=== PATIENT | female | born 1985 | race Caucasian/White ===

== ENCOUNTER 2021-05-26 03:26 | Outpatient (CLI) | payer BC, SELFPAY ==
[2021-05-26 08:20] LABS: Abs Immature Grans 0.01 10^3/uL (0.0-0.06); Absolute Basophil Count 0.07 10^3/uL (0.0-0.2); Absolute Eosinophil Count 0.31 10^3/uL (0.0-0.7); Absolute Lymphocyte Count 2.47 10^3/uL (1.2-3.4); Absolute Monocyte Count 0.51 10^3/uL (0.1-0.8); Absolute Neutrophil Count 3.63 10^3/uL (1.2-6.7); Eosinophils % 4.4; HCT 40.3 % (36.0-46.0); HGB 13.1 g/dL (11.2-15.7); Immature Grans % 0.1; Lymphocytes % 35.3; MCH 29.4 pg (27.0-33.0); MCHC 32.5 % (32.0-36.0); MCV 90.4 fL (80-95); MPV 10.1 fL (8.0-11.0); Monocytes % 7.3; Neutrophils % 51.9; Nucleated RBC 0 %; Platelet Count 265 10^3/uL (130-400); RBC 4.46 10^6/uL (3.93-5.22); RDW 12.9 % (11.7-14.6)
[2021-05-26 08:58] LABS: Iron 63 ug/dL (50-170); Total Iron Binding Capacity 378 ug/dL (250-450)
[2021-05-26 09:22] LABS: ALT 37 U/L (14-59); AST 19 U/L (15-37); Albumin 4.2 g/dL (3.4-5.0); Alkaline Phosphatase 68 U/L (46-116); Anion Gap 8.6 mmol/L (3-11); BUN 18 mg/dL (7-18); Bilirubin, Total 0.5 mg/dL (0.2-1.0); CO2 26.4 mmol/L (21.0-32.0); CREATININE 0.9 mg/dL (0.55-1.02); Calculated LDL 132 mg/dL (<100); Chloride 102 mmol/L (98-107); Cholesterol 238 mg/dL (<200); Folate 10.8 ng/mL (8.6-20.0); Glucose 92 mg/dL (74-106); HDL Cholesterol 96 mg/dL (40-60); Potassium 4.1 mmol/L (3.5-5.1); Sodium 137 mmol/L (136-145); Total Protein 7.8 g/dL (6.4-8.2); Triglyceride 53 mg/dL (<150); Vitamin B12 449 pg/mL (193-986)
[2021-05-26 09:30] LABS: Amylase 104 U/L (25-115); Lipase 423 U/L (73-393)
[2021-05-26 13:28] LABS: Ferritin 27 ng/mL (8-252)
[2021-05-29 11:43] LABS: EBNA IgG Positive (Negative); EBV Interpretation (See Note); VCA IgG Positive (Negative); VCA IgM Negative (Negative)
[2021-05-29 12:15] LABS: IgA 233 mg/dL (85-499); Interpretation (See Note); Tissue Transglutaminase IgA <1.2 U/mL (<4.0)
[2021-05-29 14:56] LABS: M. pneumoniae Ab, IgG Negative (Negative); M. pneumoniae Ab, IgM Negative (Negative)
[2021-05-30 06:17] LABS: 25-Hydroxy D Total 33 ng/mL; 25-Hydroxy D2 <4.0 ng/mL; 25-Hydroxy D3 33 ng/mL
[2021-05-31 15:17] LABS: Candida albicans IgG 2.1 mcg/mL (<52.0)
[2021-06-07 11:39] LABS: Lipoprotein (a) 20 nmol/L (<75)
[2021-06-07 13:52] LABS: Misc Referral (MAYO) See Comments
== END 2021-05-26 03:27 | disposition home or self-care (01) ==
LOC: LBO 03:26
PROVIDERS: PCP Naturopath; Visit Provider Naturopath
DX: N39.0 Urinary tract infection, site not specified (principal); E78.5 Hyperlipidemia, unspecified; R58 Hemorrhage, not elsewhere classified; R53.82 Chronic fatigue, unspecified; R85.0 Abnormal level of enzymes in specimens from digestive organs and abdominal cavity; E55.9 Vitamin D deficiency, unspecified; Z88.9 Allergy status to unspecified drugs, medicaments and biological substances
CPT/HCPCS: 36415; 80053; 80061; 82306; 82784; 83516; 83690; 83695; 86001; 82150; 82607; 82728; 82746; 83540; 83550; 85025; 86003; 86664; 86665; 86738

== ENCOUNTER 2022-03-27 19:42 | Outpatient (REF) | payer BC, SELFPAY ==
[2022-03-29 10:53] LABS: COVID-19 RT-PCR UVMMC Result Negative (Negative)
== END 2022-03-27 19:43 | disposition home or self-care (01) ==
LOC: LBN 19:42
PROVIDERS: PCP Nurse Practitioner; Visit Provider Physician Assistant
DX: J02.9 Acute pharyngitis, unspecified (principal); Z20.822 Contact with and (suspected) exposure to COVID-19
CPT/HCPCS: U0003; 87070

== ENCOUNTER 2022-06-22 17:27 | Outpatient (REF) | payer BC, SELFPAY ==
--- NOTE | 2022-06-22 15:45 | PAPFT_PTH ---
PATIENT: Jackie Galeana LOC: [facility] U#:[id number] AGE/SX: 36/F ROOM: RE06/22/[address]: Ivis Hartmann NP : 1985 BED: DIS: 06/22/2022 SPEC #: [id number] RECD: 06/25/22 13:04 STATUS: NICK REBarbara #: [id number] DAYANA: 06/22/22 15:[address]: Ivis Hartmann DEPT: FORMERLY [facility], [facility] Cytology RECD BY: Suellen Leiva ENTERED: 06/25/22 13:04 SP TYPE: PAPFT OT DR: Damaris Kemp, PhD NUCLEAR FUEL ENRICHMENT TECHNICIAN Tissues: 1 - CX/ENDOCX FOR PAP SMEARS Procedures: PAP THIN PREP/UVM Screening HPV DNA PROBE Comments: [id number]
== END 2022-06-22 17:28 | disposition home or self-care (01) ==
LOC: LBN 17:27
PROVIDERS: PCP Nurse Practitioner; Visit Provider Nurse Practitioner Family
DX: Z12.4 Encounter for screening for malignant neoplasm of cervix (principal); Z11.51 Encounter for screening for human papillomavirus (HPV)
CPT/HCPCS: 88142; 87624

== ENCOUNTER → 2022-07-10 01:33 | Outpatient (CLI) | payer BC, SELFPAY ==
--- NOTE | 2022-07-10 | DI.US_ITS ---
Exam(s) US BREAST LT COMPLETE US BREAST RT COMPLETE MG MAMMO DIAGNOSTIC BI EXAM: MG MAMMO DIAGNOSTIC BI AND BILATERAL COMPLETE BREAST ULTRASOUND CLINICAL HISTORY: Bilateral breast tenderness, lumpy,n64.4. TECHNIQUE: BILATERAL CC AND MLO VIEW mammographic images were obtained with 3D tomosynthesis techn[employer]Rate Systems ue and utilizing computer aided detection (CAD). ALSO PERFORMED SPOT COMPRESSION LEFT VIEW. BILATERAL COMPLETE BREAST ULTRASOUND was performed including all 4 quadrants of both breasts, both re troareolar regions, and both axillary regions. COMPARISON: None. This is a baseline study on this 36-year-old patient apparently has bilateral kurt ast pain but denies lumps. FINDINGS: Fibroglandular tissue is moderately dense in both breast. There are no significant focal mammographic findings in the right breast. In the left breast there is suggestion of a nodular density on the MLO view. We performed additional spot compression view and this reveals a possible nodule measuring 7 x 6 millimeters located 4 cm in from the nipple. There are no malignant-appearing microcalcification groups in either breast and there is no significa nt architectural distortion or skin thickening-traction in either breast. COMPLETE BILATERAL BREAST ULTRASOUND: Left breast: At the 11 o'clock position there is a 6 millimeter Microcyst which may correspond to the finding on the mammogram. Smaller 2 millimeter microcyst is se en at the 9 o'clock position. No solid lesions in all 4 quadrants. Left axilla is negative for marino opathy. Right breast: There is a 3 by 2 millimeter benign microcyst at the 10 o'clock position. No other focal ultrasound findings in all 4 quadrants nor in the retroareolar region. Scanning of the right axilla is negative for adenopathy. IMPRESSION: Bilateral microcysts. The largest is a 6 millimeter microcysts at the 11 o'clock position of the lef t breast which most probably corresponds to the nodule seen on spot compression mammographic view of the left breast. Most importantly, there are no solid lesions seen in either breast. No axillary adenopathy. Appropriate follow-up is repeat breast ultrasound in 3 months if symptoms persist. The patient was informed of the findings and follow-up recommendations prior to leaving the [facility] today. BI-RADS Category 3 - 3 month - Probably Benign Finding: Recommend follow-up mammography in 3 months Breast Density - Category C - Heterogeneously dense Breast density Category C or D implies that the patient has dense breast tissue. Dense breast tissue can make it harder to find cancer on a mammogram. Dense breast tissue is also associated with an incr eased risk of breast cancer. This information about the result of the mammogram report was provided to the patient to raise their awareness. Use this report when you speak with the patient about their risks for breast cancer, which includes their family history. At that time, you may recommend additional screening tests (Ultrasoun d or MRI) as these tests may add significant information. A negative radiographic report should not delay biopsy if a dominant or clinically suspicious mass is present. Up to ten percent of cancers are not identified on mammography. A negative report may reinforce clinical impression. Adenosis and dense breasts may obscure an underlying neoplasm. False positive reports average 6 to 10%. Patient will receive a letter notifying them of these results.
== END ==
PROVIDERS: PCP Nurse Practitioner; Visit Provider Nurse Practitioner Family
DX: N64.4 Mastodynia (principal); R92.0 Mammographic microcalcification found on diagnostic imaging of breast; N60.01 Solitary cyst of right breast; N60.02 Solitary cyst of left breast
CPT/HCPCS: 76642; 77062; 77066; G0279

== ENCOUNTER 2022-07-12 04:02 | Outpatient (CLI) | payer BC, SELFPAY ==
[2022-07-12 10:14] LABS: Lipase 203 U/L (73-393)
== END 2022-07-12 04:03 | disposition home or self-care (01) ==
PROVIDERS: PCP Nurse Practitioner; Visit Provider Nurse Practitioner
DX: R74.8 Abnormal levels of other serum enzymes (principal)
CPT/HCPCS: 36415; 83690

== ENCOUNTER 2023-05-09 15:02 | Outpatient (CLI) | payer BC, SELFPAY ==
[2023-05-09 16:40] LABS: TSH (W/Ref FT4) 1.99 uIU/mL (0.36-3.74)
[2023-05-10 20:17] LABS: Thyroglobulin Antibody <15 U/mL (<=60); Thyroperoxidase Antibody <28 U/mL (<=60)
== END 2023-05-09 15:03 | disposition home or self-care (01) ==
LOC: LBO 15:03
PROVIDERS: PCP Nurse Practitioner Family; Visit Provider Nurse Practitioner Women's Health
DX: R63.5 Abnormal weight gain (principal); R61 Generalized hyperhidrosis; Z83.49 Family history of other endocrine, nutritional and metabolic diseases
CPT/HCPCS: 36415; 86376; 84443

== ENCOUNTER → 2023-05-29 10:22 | Outpatient (CLI) | payer BC, SELFPAY ==
--- NOTE | 2023-05-29 09:30 | DI.US_ITS ---
Exam(s) US SOFT TISSUE EXTREMITY EXAM: US SOFT TISSUE EXTREMITY CLINICAL HISTORY: swelling/cyst left foot please evaluate, lt foot pain, M79.672. TECHNIQUE: Ultrasound was performed using standard protocol. COMPARISON: Foot x-ray same day FINDINGS: Dedicated ultrasound examination of the region of clinical interest on the lateral aspect of the left foot was performed. Plain x-rays were reviewed. There is an abnormal lobulated cystic mass on the lateral aspect of foot which corresponds to the vis ible and palpable finding. This is orientated in the longitudinal plane along the lateral aspect of t he foot, measuring 2.1 cm long by 0.4 cm thick by average width 0.9 cm. Appearance is most probably t hat of a para-articular ganglion cyst. There are no solid nodular internal components evident. No aleksandra dence of calcification within this finding on ultrasound. IMPRESSION: There is a lobulated cystic appearing mass on the lateral aspect of the left foot corresponding to th e palpable finding at this level and having the appearance of a probable para-articular ganglion cyst . Appropriate follow-up recommended. Consider MRI. See signed report. Probable DATA REPOSITORY:
--- NOTE | 2023-05-29 10:33 | DI.RAD_ITS ---
Exam(s) XR FOOT LT COMPLETE EXAM: XR FOOT LT COMPLETE CLINICAL HISTORY: great toe pain, pain at base of 5th metatarsal, M79.672. TECHNIQUE: 2D digital imaging was performed. COMPARISON: No exams were available for comparison FINDINGS: 3 views There is no evidence of fracture or diastasis of the Lisfranc joint. Bone density normal. No osseou s lesions. No degenerative changes. No erosions evident. No soft tissue calcifications. IMPRESSION: No significant osseous findings in the left foot. See separate left foot ultrasound dictation reveals a finding on the lateral aspect the foot which is not visible on these plain radiographs. DATA REPOSITORY: RADIATION DOSE DELIVERED:
== END ==
PROVIDERS: PCP Family Medicine; Visit Provider Physician Assistant
DX: M79.672 Pain in left foot (principal)
CPT/HCPCS: 76881; 73630

== ENCOUNTER 2023-05-31 03:10 | Outpatient (CLI) | payer BC, SELFPAY ==
[2023-05-31 16:48] LABS: Abs Immature Grans 0.01 10^3/uL (0.0-0.06); Absolute Basophil Count 0.07 10^3/uL (0.0-0.2); Absolute Eosinophil Count 0.27 10^3/uL (0.0-0.7); Absolute Lymphocyte Count 2.51 10^3/uL (1.2-3.4); Absolute Monocyte Count 0.57 10^3/uL (0.1-0.8); Absolute Neutrophil Count 4.37 10^3/uL (1.2-6.7); Basophils % 0.9; Eosinophils % 3.5; HCT 39.7 % (36.0-46.0); HGB 13.3 g/dL (11.2-15.7); Immature Grans % 0.1; Lymphocytes % 32.2; MCH 29.6 pg (27.0-33.0); MCHC 33.5 % (32.0-36.0); MCV 88 fL (80-95); MPV 9.9 fL (8.0-11.0); Monocytes % 7.3; Platelet Count 268 10^3/uL (130-400); RBC 4.49 10^6/uL (3.93-5.22); RDW 12.6 % (11.7-14.6); RDW-SD 40.7 fL
[2023-05-31 17:32] LABS: Uric Acid 3.6 mg/dL (2.6-6.0)
== END 2023-05-31 03:11 | disposition home or self-care (01) ==
LOC: LBO 03:10
PROVIDERS: Physician Assistant; PCP Family Medicine; Visit Provider Family Medicine
DX: M79.672 Pain in left foot (principal)
CPT/HCPCS: 36415; 84550; 85025

== ENCOUNTER → 2023-06-17 02:51 | Outpatient (CLI) | payer BC, SELFPAY ==
--- NOTE | 2023-06-17 13:45 | DI.MRI_ITS ---
Exam(s) MR LOWER EXTREMITY LT WO EXAM: MR LOWER EXTREMITY LT WO CLINICAL HISTORY: left foot pain, cyst noted on US,M79.672 TECHNIQUE: Multiplanar multisequence MRI was performed. COMPARISON: US US SOFT TISSUE EXTREMITY from 05/29/2023 CR XR FOOT LT COMPLETE from 05/29/2023 FINDINGS: MARROW:There is no evidence of fracture, bone contusion, nor significant osseous lesions. MUSCLES/TENDONS: There is no evidence of abnormal signal nor mass in the visualized muscles.Achilles tendon unremarkable. There are no tendon tears nor tenosynovitis. EXTRAMUSCULAR SOFT TISSUES: On the lateral aspect of the foot there is a E lobulated multi cystic sep tated T2 bright mass subjacent to the skin marker and corresponding to finding on prior ultrasound. This has the appearance of a para-articular ganglion cyst and measures approximately 2 cm length by 0 .9 cm wide. Closest articulation is the 5th tarsometatarsal joint between the cuboid and base of the 5th metatarsal. This appears separate from the nearby peroneus longus and brevis tendon sheaths. OTHER: None. IMPRESSION: findings are consistent with a multi [id number]-[id number] para-articular ganglion cyst, this veronica esponding to finding which was seen on recent ultrasound examination 05/29/2023. This is intimately related to the cuboid bone and 5th tarsometatarsal joint. There is no abnormal intraosseous signal i n these bones. DATA REPOSITORY:
== END ==
PROVIDERS: PCP Family Medicine; Visit Provider Physician Assistant
DX: M79.672 Pain in left foot (principal)
CPT/HCPCS: 73718

== ENCOUNTER → 2023-06-19 02:16 | Outpatient (CLI) | payer BC, SELFPAY ==
--- NOTE | 2023-06-19 07:15 | DI.US_ITS ---
Exam(s) US BREAST LT COMPLETE US BREAST RT COMPLETE MG MAMMO DIAGNOSTIC BI EXAM: MG MAMMO DIAGNOSTIC BI AND BILATERAL COMPLETE BREAST ULTRASOUND CLINICAL HISTORY: Bilat breast tenderness, dense breast tissue,h/o microcysts,n64.4. TECHNIQUE: Unilateral spot mammographic images were obtained with 3D tomosynthesis technique and uti lizing computer aided detection (CAD). COMPARISON: Prior mammograms were reviewed, as was prior breast ultrasound of 07/10/2022. FINDINGS: DIAGNOSTIC BILATERAL MAMMOGRAM: Fibroglandular tissue pattern is moderately dense. There are no new focal mammographic findings in left breast. In the right breast there are 2 small microcalcification groups located laterally slightly more promi nent than 1 year ago but remain benign appearance. There are no new spiculated masses in either breast. There is no new architectural distortion or ski n thickening-traction. BILATERAL COMPLETE BREAST ULTRASOUND: Left breast: Previously described microcysts are again noted and there are 2 additional new microcysts but no citlaly d lesions. At the 1 o'clock position there is a new 4 x 3 mm benign microcyst. At 2 o'clock positio n there is an unchanged 6 x 2 mm microcyst. At 9 o'clock position there is a 2 millimeter microcyst. There is microcyst measuring 5 x 3 mm at 10 o'clock position, not previously present. At 11 o'clock position there is a 4 x 2 mm microcyst. Scanning of the left axilla is negative for adenopathy. Right breast: There is a 4 x 2 mm benign microcyst at 10 o'clock position. It is unchanged. No new right breast u ltrasound findings. Scanning of the right axilla is negative for adenopathy. Most importantly, there are no new solid lesions in either breast. IMPRESSION: 1. Bilateral benign microcysts, again more numerous in the left breast. Nevertheless, there are no c oncerning solid lesions seen in either breast on ultrasound. 2. Two microcalcification groups laterally in the right breast seen on mammogram which require repeat right breast MAMMOGRAM follow-up in 6 months. Ultrasound does not need to be repeated at that time unless clinically indicated The patient was informed of the findings and follow-up recommendations by myself prior to leaving the department today. BI-RADS Category 3 - 6 month - Probably Benign Finding: Recommend follow-up mammography in 6 months Breast Density - Category C - Heterogeneously dense Breast density Category C or D implies that the patient has dense breast tissue. Dense breast tissue can make it harder to find cancer on a mammogram. Dense breast tissue is also associated with an incr eased risk of breast cancer. This information about the result of the mammogram report was provided to the patient to raise their awareness. Use this report when you speak with the patient about their risks for breast cancer, which includes their family history. At that time, you may recommend additional screening tests (Ultrasoun d or MRI) as these tests may add significant information. A negative radiographic report should not delay biopsy if a dominant or clinically suspicious mass is present. Up to ten percent of cancers are not identified on mammography. A negative report may reinforce clinical impression. Adenosis and dense breasts may obscure an underlying neoplasm. False positive reports average 6 to 10%. Patient will receive a letter notifying them of these results.
== END ==
PROVIDERS: PCP Family Medicine; Visit Provider Nurse Practitioner Women's Health
DX: R92.8 Other abnormal and inconclusive findings on diagnostic imaging of breast (principal); Z12.31 Encounter for screening mammogram for malignant neoplasm of breast
CPT/HCPCS: 76642; 77062; 77066; G0279

== ENCOUNTER 2023-07-05 02:11 | Emergency (ER) | payer BC, SELFPAY ==
[2023-07-05 02:14] VITALS: BP 151/101; PULSE 94; RESP 18; TEMP 37.2; O2SAT 98
--- NOTE | 2023-07-05 02:22 | W.ED.GENAD ---
Discharge Plan Disposition Patient Disposition: Home Condition: Good Discharge Details Clinical Impression: Fibroid, uterine Primary Care Provider: Osiel Lafleur ED Provider: Maico Martinez Discharge Instructions Instructions: Pelvic Pain (ED) Additional Instructions: At this time your work-up is returned very reassuring. There is no evidence of urinary tract infection. Your CAT scan imaging shows some small ovarian cyst, but it also shows a uterine fibroid which I suspect is potential cause of your symptoms. Please take Tylenol and Motrin as needed for pain. Please follow closely with your obstetrics manufacturing team member. If you notice any worsening of your symptoms, or any new symptoms such as vomiting, diarrhea, fever, chills, shortness of breath, chest pain, numbness, weakness, or fainting , please return immediately to the emergency department for reevaluation. Please follow up with your primary care provider as soon as possible for reassessment and reevaluation. As always, it was a pleasure participating in your medical care today. Referrals: Tiny Beltran DO [OSTEOPATHIC DOCTOR] - Osiel Lafleur DO [Primary Care Provider] - Anitra Melgoza MD [ [facility] STAFF PHYSICIAN] - Medical Decision Making This is a pleasant 37-year-old female with a past medical history of a tight pelvic floor, previous urinary tract infections, a shy bladder, who presents today for left lower quadrant abdominal pain. Patient states that over the last few days she has had some mild achiness in the lower abdominal and pelvic region. She is scheduled to see physical therapy for pelvic floor. However this morning she woke up out of sleep with more notable pain in the left lower quadrant. She has had some occasional urinary frequency, and feeling like she is not completely emptying her bladder. She denies any vomiting, or diarrhea. She does admit to some chills that occurred this morning when she woke up. She denies any numbness or tingling. No vaginal discharge. Last episode of intercourse was 2 weeks ago with her significant other, and she states that this was uneventful with no atypical pain or trauma. Patient has no other complaints at this time. No other modifying factors. Exam demonstrates a well-appearing female, no guarding or rebound on abdominal exam. Mild tenderness in the left lower quadrant and left pelvic region. No vaginal discharge to suggest infection. No signs of an acute surgical abdomen. Differential includes urinary tract infection, pyelonephritis, less likely ovarian cyst or diverticulitis. Symptoms appear clinically inconsistent with ovarian torsion. We will start with urinalysis lab work monitor closely and reassess. 6:06 AM Laboratory work-up has returned normal. Urinalysis negative. Discussed risks and benefits of further imaging with her benign abdominal exam, however weighing the risk and benefits patient has elected to move forward with CT imaging out of concern. CT scan shows evidence of some ovarian cyst, as well as uterine fibroid. No other abnormality. Cysts are small. Symptoms inconsistent with torsion. No evidence of diverticulitis. On reassessment patient feels well and feels very comfortable going home. I suspect the fibroid is likely the cause of her current symptomatology. We will give Toradol here. Recommend Tylenol Motrin at home and close follow-up with obstetrics. Otherwise patient looks notably clinically well with no evidence of an acute life-threatening etiology at this time. Patient stable for discharge. Discussed red flags for which to return. Patient does admit that she has a strong family history of fibroids and her mother did need a hysterectomy. I have extensively reviewed the treatment plan and discharge instructions with the patient. I have addressed all patient concerns at this time. The patient was made aware of what symptoms to monitor for that would warrant a return to the emergency department. Discussed the plan with the patient, they demonstrate verbal understanding and agreement with our assessment and plan at this time. The documentation in this chart was dictated using [id number] dictation software. Please excuse any dictation errors. FINDINGS: Liver: No focal hepatic lesion identified. Gallbladder and bile ducts: No radiodense gallbladder calculi seen. Pancreas: No CT evidence for acute pancreatitis. Spleen: No splenomegaly. Adrenal glands: No mass. Kidneys and ureters: No hydronephrosis or evidence for pyelonephritis. Stomach and bowel: Fluid in nondilated small bowel, nonspecific. Retained fecal material throughout the colon. Correlate clinically for history of constipation. Appendix: No evidence of appendicitis. Intraperitoneal space: No free air. Vasculature: No abdominal aortic aneurysm Lymph nodes: Nonspecific mesenteric lymph nodes. No intestinal obstruction is evident. Urinary bladder: No acute findings. Reproductive: Small corpus luteum cysts in the ovaries bilaterally. Uterine mass consistent with fibroid measuring approximately 1.5 cm. Central hypodensity in the uterus, likely secretory phase endometrium. Bones/joints: Pectus excavatum noted. Soft tissues: Small fat containing umbilical hernia. IMPRESSION: 1. Small bilateral corpus luteal ovarian cysts. 2. Nonacute findings as outlined above. Thank you for allowing us to participate in the care of your patient. Dictated and Authenticated by: Kelly gNuyen MD 07/05/2023 5:48 AM Eastern Time ([place] & [place]) HPI General Date/Time Provider Initiated Documentation: 07/05/23 02:11. HPI Narrative: This is a pleasant 37-year-old female with a past medical history of a tight pelvic floor, previous urinary tract infections, a shy bladder, who presents today for left lower quadrant abdominal pain. Patient states that over the last few days she has had some mild achiness in the lower abdominal and pelvic region. She is scheduled to see physical therapy for pelvic floor. However this morning she woke up out of sleep with more notable pain in the left lower quadrant. She has had some occasional urinary frequency, and feeling like she is not completely emptying her bladder. She denies any vomiting, or diarrhea. She does admit to some chills that occurred this morning when she woke up. She denies any numbness or tingling. No vaginal discharge. Last episode of intercourse was 2 weeks ago with her significant other, and she states that this was uneventful with no atypical pain or trauma. Patient has no other complaints at this time. No other modifying factors. Related Data Allergies Allergy/AdvReac Type Severity Reaction Status Date / Time neomycin Allergy Verified 06/21/23 08:29 Penicillins Allergy Verified 06/21/23 08:29 codeine AdvReac Unknown Unverified 07/05/23 02:40 General Stated Complaint: Abd Prob LEYDI: 3 Review of Systems All systems reviewed & are unremarkable except as noted in HPI and below PFSH All Active Problems (Updated 07/05/23 @ 06:01 by Maico Martinez DO) Fibroid, uterine (Acute) Right ankle pain (Acute) Ganglion cyst of left foot (Acute) Dyspareunia, female (Acute) Referral to PFPT Breast tenderness (Acute) Elevated lipase (Acute) Paresthesia of right arm (Acute) Small intestinal bacterial overgrowth (Acute) [facility] [place] [facility] [place] Environmental allergies (Acute) Swallowing difficulty (Acute) [facility] [place] appt 04/15/22 Medical History Family history of Alma thyroiditis Migraine Inflammatory bowel disease Anxiety Depression Asthma Eating disorder Surgical History [place] teeth extracted (~04/2001) Family History Mother Alcohol use disorder Depression Alma's disease Anxiety Father Alcohol use disorder Depression Hypertension Asthma Anxiety Pre-diabetes Maternal Grandfather , 90 Heart disease Paternal Grandfather , 85 Alcohol use disorder Maternal Grandmother Breast cancer Paternal Grandmother , 84 No problems noted. Paternal Aunt Cervical cancer Social History Smoking/Tobacco Use Status: Former Tobacco Use tobacco type: cigarettes Quit Date: 09/16/13 Tobacco: How many years used: 10 Second Hand Exposure: Yes Smoking risk assessment performed?: Yes Alcohol Intake: current Alcohol Intake frequency: a few times a month Alcohol type: beer and hard liquor Drug use: Never Substance use type: does not use Adopted: No Caregiver/Support person: No Foster care: No Household members: spouse Housing: house Number of Children: 0 number of grandchildren: 0 Communication Needs: None Education Level: college Details: Bachelor's Degree Do you need help understanding health information?: Rarely Pets and animals: Yes (1) Pets and animals: cat(s) Sexually active: Yes Do you think of yourself as: bisexual Current gender identity: female What is your relationship status?: How often do you talk on the phone with friends or family?: once per week How often do you get together with friends or relatives?: once per week Do you belong to any clubs or organized social groups?: no Panel score (0-1 are the most socially isolated patients): 1 What type of physical activity do you participate in: walking, bicycling, other Details: Hiking; rowing; skiing and yoga Duration: other Details: Depends on the day - 30-45 min or greater than 90 min Frequency: daily Bety/Adventism: None Special bety needs: No Seatbelt use: always Helmet use: Yes Helmet use: always Drive intox or ride w/intox dumpcart driver: No Do you feel safe in your relationship?: Yes Female Reproductive History Menstrual Duration of menses: 3-5 days control method: other (vasectomy) History History 0 Para Hx # Term Pregnancies Multiple births Hx # Pregnancies Ectopic pregnancies AB induced Hx Number of Living Children AB spontaneous Exam Narrative Exam Narrative: 1.Const: Well-nourished, Well-developed, appearing stated age 2.Eyes: PERRL, no conjunctival injection, and symmetrical lids. 3.ENT: Atraumatic external nose and ears. Moist MM. Neck: Symmetric, trachea midline, No thyromegaly. 4.CVS: +S1/S2, No murmurs or gallops. Peripheral pulses 2+ and equal in all extremities. Brisk capillary refill in all extremities. 5.RESP: Unlabored respiratory effort. Clear to auscultation bilaterally. No wheezes rales or rhonchi 6.GI: Soft, nondistended. No guarding or rebound. Mild achiness in the left lower quadrant. Mild left-sided pelvic tenderness. No pain in the right lower quadrant. No CVA tenderness. Negative obturator and psoas sign. Negative heel strike test. 7.MSK: Normocephalic/Atraumatic, Extremities w/o deformity or ttp No cyanosis or clubbing, Normal movement of all extremities 8.Skin: Warm, Dry. No rashes or lesions. 9.Neuro: fisher spear II-XII grossly intact. Sensation grossly intact, no focal neurologic deficits. 10.Psych: (AAO) x3. Appropriate mood and affect Course Vital Signs Vital signs: Vital Signs Temperature 37.2 C 07/05/23 02:14 Pulse 94 H 07/05/23 02:14 Respiratory Rate 18 07/05/23 02:14 Blood Pressure 151/101 H 07/05/23 02:14 Pulse Oximetry 98 07/05/23 02:14 Temperature 37.2 C 07/05/23 02:14 Pulse 94 H 07/05/23 02:14 Respiratory Rate 18 07/05/23 02:14 Blood Pressure 151/101 H 07/05/23 02:14 Pulse Oximetry 98 07/05/23 02:14 Oxygen Delivery Method Room Air 07/05/23 02:14 Oxygen Flow Rate 0 07/05/23 02:14
[2023-07-05] MEDS: Normal Saline 1,000 ML 1000 ML IV (02:38)
[2023-07-05 02:39] LABS: Abs Immature Grans 0.02 10^3/uL (0.0-0.06); Absolute Basophil Count 0.08 10^3/uL (0.0-0.2); Absolute Eosinophil Count 0.34 10^3/uL (0.0-0.7); Absolute Lymphocyte Count 3.33 10^3/uL (1.2-3.4); Absolute Monocyte Count 0.67 10^3/uL (0.1-0.8); Absolute Neutrophil Count 4.44 10^3/uL (1.2-6.7); Basophils % 0.9; Eosinophils % 3.8; HCT 41.3 % (36.0-46.0); Immature Grans % 0.2; Lymphocytes % 37.5; MCH 29.4 pg (27.0-33.0); MCHC 33.9 % (32.0-36.0); MCV 87 fL (80-95); MPV 9.8 fL (8.0-11.0); Monocytes % 7.5; Neutrophils % 50.1; Platelet Count 279 10^3/uL (130-400); RBC 4.77 10^6/uL (3.93-5.22); RDW 12.2 % (11.7-14.6); WBC 8.88 10^3/uL (4.4-10.8)
[2023-07-05 02:45] VITALS: BP 127/79; PULSE 70; RESP 18; O2SAT 100
[2023-07-05 02:53] LABS: ALT 27 U/L (14-59); AST 19 U/L (15-37); Albumin 4.2 g/dL (3.4-5.0); Alkaline Phosphatase 76 U/L (46-116); Anion Gap 9.3 mmol/L (3-11); BUN 10 mg/dL (7-18); Bilirubin, Total 0.5 mg/dL (0.2-1.0); CO2 25.7 mmol/L (21.0-32.0); CREATININE 0.9 mg/dL (0.55-1.02); Calcium 9.4 mg/dL (8.5-10.1); Chloride 102 mmol/L (98-107); Glucose 106 mg/dL (74-106); Potassium 3.7 mmol/L (3.5-5.1); Sodium 137 mmol/L (136-145)
[2023-07-05 03:11] LABS: Bilirubin Negative (Negative); Blood Negative (Negative); Clarity Clear (Clear); Glucose Negative (Negative); Ketones Negative (Negative); Leukocyte Esterase Negative (Negative); Nitrite Negative (Negative); Specific Gravity 1.015 (1.005-1.025); Urobilinogen 0.2 mg/dL (Up to 0.2)
--- NOTE | 2023-07-05 03:30 | DI.CT_ITS ---
Exam(s) CT ABDOMEN PELVIS W EXAM: CT ABDOMEN PELVIS W CLINICAL HISTORY: LLQ and L pelvic pain, eval for cyst, divertic. TECHNIQUE: Imaging Protocol: Axial computed tomography images with coronal and sagittal reformatted images were created and reviewed CONTRAST MATERIAL: Intravenous: Omnipaque-350 100cc Oral: None COMPARISON: CT CT ABDOMEN WO from 06/30/2021 FINDINGS: VISUALIZED LUNG BASES: No nodules nor pleural effusions evident. ABDOMEN: There is no ascites. LIVER: There are no focal hepatic lesions evident. No dilated intrahepatic ducts. GALLBLADDER/BILIARY: No obvious gallbladder pathology. CBD is not dilated. PANCREAS: No evidence of pancreatic mass nor dilatation of the pancreatic duct. SPLEEN: Spleen is not enlarged. No obvious intrasplenic lesions. Splenic and portal veins are paten t. ADRENALS: There are no significant adrenal masses. KIDNEYS:No cysts evident. No solid renal masses. No calculi nor hydronephrosis.. ABDOMINAL AORTA: Abdominal aorta is not enlarged. LYMPH NODES:There is no retroperitoneal nor paraaortic adenopathy. ABDOMINAL WALL: No evidence of significant anterior abdominal wall nor inguinal hernia. GI: There is no evidence of bowel obstruction, free air, nor abscess. PELVIS: GI: No evidence of appendicitis.No evidence of sigmoid diverticulitis. LYMPH NODES: There is no intrapelvic nor inguinal adenopathy. REPRODUCTIVE: Uterus size is normal. Anteverted. There is a fibroid in the posterior myometrium at the fundus level measuring 1.2 x 1.2 cm. Small bilateral corpus luteal cysts measuring 1.2 cm. URINARY BLADDER: No calculi nor obvious masses evident OSSEOUS: No fractures and no significant osseous lesions. IMPRESSION: 1. Small bilateral corpus luteal ovarian cysts. No free fluid. Small uterine fibroid at the level t he posterior fundus. 2. No evidence of appendicitis nor diverticulitis. RADIATION DOSE DELIVERED: Total DLP DATA REPOSITORY: All CT scans at this facility are submitted to the National Radiology Data Registry (NRDR) Dose Index Registry (DIR) with the [employer] ([employer]). RADIATION OPTIMIZATION: All CT scans at this facility use at least one of these dose optimization te chniques: automated exposure control; mA and/or kV adjustment per patient size (includes targeted exa ms where dose is matched to clinical indication); or iterative reconstruction.
[2023-07-05] MEDS: Omnipaque 350 MG/ML 100 ML BTL IJ (04:03)
[2023-07-05] MEDS: Normal Saline - Diluent 50 ML VIAL IJ (04:04)
--- NOTE | 2023-07-05 05:48 | DI.VRAD_ITS ---
Addendum created by Kelly Nguyen MD on 07/05/2023 5:55:16 AM EDT: Not mentioned above: There is thickening of the distal stomach which could be secondary to underdistention but gastritis or neoplasm cannot be excluded. The appearance is similar to prior study. Initial report created on 07/05/2023 5:48:07 AM EDT: PROCEDURE INFORMATION: Exam: CT Abdomen And Pelvis With Contrast Exam date and time: 07/05/2023 3:59 AM Age: 37 years old Clinical indication: Other: Llq and lt pelvic pain, eval for cyst, divertic TECHNIQUE: Imaging protocol: Computed tomography of the abdomen and pelvis with contrast. COMPARISON: CT ABDOMEN WO 06/30/2021 3:00 PM FINDINGS: Liver: No focal hepatic lesion identified. Gallbladder and bile ducts: No radiodense gallbladder calculi seen. Pancreas: No CT evidence for acute pancreatitis. Spleen: No splenomegaly. Adrenal glands: No mass. Kidneys and ureters: No hydronephrosis or evidence for pyelonephritis. Stomach and bowel: Fluid in nondilated small bowel, nonspecific. Retained fecal material throughout the colon. Correlate clinically for history of constipation. Appendix: No evidence of appendicitis. Intraperitoneal space: No free air. Vasculature: No abdominal aortic aneurysm. Lymph nodes: Nonspecific mesenteric lymph nodes. No intestinal obstruction is evident. Urinary bladder: No acute findings. Reproductive: Small corpus luteum cysts in the ovaries bilaterally. Uterine mass consistent with fibroid measuring approximately 1.5 cm. Central hypodensity in the uterus, likely secretory phase endometrium. Bones/joints: Pectus excavatum noted. Soft tissues: Small fat containing umbilical hernia. IMPRESSION: 1. Small bilateral corpus luteal ovarian cysts. 2. Nonacute findings as outlined above. Dictated and Authenticated by: Kelly Nguyen MD. Ordering:SEGUN Nina MD
[2023-07-05] MEDS: Ketorolac 15 MG/ML VIAL IVP (06:25)
== END 2023-07-05 06:37 | disposition home or self-care (01) ==
PROVIDERS: Emergency Provider Student in an Organized Health Care Education/Training Program; PCP Family Medicine
DX: D25.9 Leiomyoma of uterus, unspecified (principal)
CPT/HCPCS: 80053; 81025; 96361; 96374; 99285; 74177; 81003; 85025; 99284; J1885; J3490

== ENCOUNTER 2023-10-06 09:23 | Outpatient (REF) | payer BC, SELFPAY ==
[2023-10-06 20:13] LABS: Campylobacter PCR Negative (Negative); Salmonella PCR Negative (Negative); Shiga Toxin PCR Negative (Negative); Shigella/Enteroinvasive Ecoli Negative (Negative)
== END 2023-10-06 09:24 | disposition home or self-care (01) ==
LOC: LBN 09:23
PROVIDERS: PCP Family Medicine; Visit Provider Nurse Practitioner Family
DX: R19.8 Other specified symptoms and signs involving the digestive system and abdomen (principal); R19.5 Other fecal abnormalities
CPT/HCPCS: 87505; 87177

== ENCOUNTER 2023-12-13 01:29 | Outpatient (CLI) | payer BC, SELFPAY ==
[2023-12-13 14:55] LABS: Kit/Specimen SENT
== END 2023-12-13 01:30 | disposition home or self-care (01) ==
PROVIDERS: PCP Family Medicine; Visit Provider Family Medicine
DX: Z02.9 Encounter for administrative examinations, unspecified (principal)
CPT/HCPCS: 36415

== ENCOUNTER → 2023-12-20 00:32 | Outpatient (CLI) | payer BC, SELFPAY ==
--- NOTE | 2023-12-20 07:45 | DI.MAMMO_ITS ---
Exam(s) MAMMO DIAGNOSTIC UNI EXAM: MAMMO DIAGNOSTIC UNI -RIGHT CLINICAL HISTORY: 6 month f/u r breast microcalcifications,r92.8. TECHNIQUE: Unilateral right breast CC and MLO views and spot magnification 2D mammographic images we re obtained. With 3D tomosynthesis technique and utilizing computer aided detection (CAD). COMPARISON: Prior mammograms were reviewed, the most recent being 06/19/2023 and 07/10/2022. Prior ultrasound examination of 06/19/2023. FINDINGS: The fibroglandular tissue pattern is again noted to be moderately dense. There are no new spiculated masses in the right breast. No new architectural distortion or skin thic kening-traction. With respect of the previously described 2 microcalcification groups located laterally, these appear unchanged from 06/19/2023 and remain benign appearance IMPRESSION: Stable appearance of the right breast microcalcification groups Appropriate follow-up is 2 repeat the 2D Mag views at the time her next yearly bilateral mammogram [facility] would be in June 2024. The patient was informed of the findings and follow-up recommendations by myself prior to leaving the department today. BI-RADS Category 3 - 6 month - Probably Benign Finding: Recommend follow-up mammography in 6 months Breast Density - Category C - Heterogeneously dense Breast density Category C or D implies that the patient has dense breast tissue. Dense breast tissue can make it harder to find cancer on a mammogram. Dense breast tissue is also associated with an incr eased risk of breast cancer. This information about the result of the mammogram report was provided to the patient to raise their awareness. Use this report when you speak with the patient about their risks for breast cancer, which includes their family history. At that time, you may recommend additional screening tests (Ultrasoun d or MRI) as these tests may add significant information. A negative radiographic report should not delay biopsy if a dominant or clinically suspicious mass is present. Up to ten percent of cancers are not identified on mammography. A negative report may reinforce clinical impression. Adenosis and dense breasts may obscure an underlying neoplasm. False positive reports average 6 to 10%. Patient will receive a letter notifying them of these results.
== END ==
PROVIDERS: PCP Family Medicine; Visit Provider Nurse Practitioner Women's Health
DX: R92.8 Other abnormal and inconclusive findings on diagnostic imaging of breast (principal); R92.0 Mammographic microcalcification found on diagnostic imaging of breast
CPT/HCPCS: 77061; 77065; G0279

== ENCOUNTER 2024-06-13 19:17 | Outpatient (REF) | payer BC, SELFPAY ==
[2024-06-14 20:06] LABS: Campylobacter PCR Negative (Negative); Salmonella PCR Negative (Negative); Shiga Toxin PCR Negative (Negative); Shigella/Enteroinvasive Ecoli Negative (Negative)
== END 2024-06-13 19:18 | disposition home or self-care (01) ==
LOC: LBN 19:17
PROVIDERS: PCP Family Medicine; Visit Provider Nurse Practitioner Family
DX: R19.7 Diarrhea, unspecified (principal)
CPT/HCPCS: 87505; 87177

== ENCOUNTER 2024-06-23 02:03 | Outpatient (CLI) | payer BC, SELFPAY ==
--- NOTE | 2024-06-23 07:30 | DI.MAMMO_ITS ---
Exam(s) MAMMO DIAGNOSTIC BI EXAM: MAMMO DIAGNOSTIC BI CLINICAL HISTORY: 6-month f/u, f/u abnl mammo,lt microcysts,rt breast microcalcificaitons,. TECHNIQUE: Unilateral spot mammographic images were obtained with 3D tomosynthesis technique and uti lizing computer aided detection (CAD). COMPARISON: Prior mammograms were reviewed, the most recent being December 2023. Prior breast ultrasound June 2023 also reviewed (bilateral mycosis) FINDINGS: There has been no significant change in the appearance and distribution of the fibroglandular tissue. There are no new spiculated masses. There are no new left breast mammographic findings. Previously described microcalcification groups laterally in the right breast remains stable size ej gn-appearing. No new architectural distortion or skin thickening-retraction. IMPRESSION: Stable benign-appearing mammographic findings. No radiographic evidence of malignancy. Appropriate follow-up is to keep this patient on a yearly mammogram schedule.. In addition, I recommend that she undergo repeat bilateral breast ultrasound at time for next yearly mammary to restudy the previously described findings on ultrasound examination of 06/19/2023 (all cys ts at that time) which are known to be hidden subjacent to her moderately dense fibroglandular tissue on 3D tomosynthesis mammography The patient was informed of the findings and follow-up recommendations by myself prior to leaving the department today. BI-RADS Category 2 - Benign Findings Breast Density - Category C - Heterogeneously dense Breast density Category C or D implies that the patient has dense breast tissue. Dense breast tissue can make it harder to find cancer on a mammogram. Dense breast tissue is also associated with an incr eased risk of breast cancer. This information about the result of the mammogram report was provided to the patient to raise their awareness. Use this report when you speak with the patient about their risks for breast cancer, which includes their family history. At that time, you may recommend additional screening tests (Ultrasoun d or MRI) as these tests may add significant information. A negative radiographic report should not delay biopsy if a dominant or clinically suspicious mass is present. Up to ten percent of cancers are not identified on mammography. A negative report may reinforce clinical impression. Adenosis and dense breasts may obscure an underlying neoplasm. False positive reports average 6 to 10%. Patient will receive a letter notifying them of these results.
== END 2024-06-23 02:23 ==
LOC: DI 02:03
PROVIDERS: PCP Student in an Organized Health Care Education/Training Program; Visit Provider Nurse Practitioner Women's Health
DX: R92.8 Other abnormal and inconclusive findings on diagnostic imaging of breast (principal); Z12.31 Encounter for screening mammogram for malignant neoplasm of breast
CPT/HCPCS: 77062; 77066; G0279

== ENCOUNTER 2024-10-13 02:14 | Outpatient (CLI) | payer BC, SELFPAY ==
--- NOTE | 2024-10-13 06:45 | DI.US_ITS ---
Exam(s) US ABDOMEN LIMITED EXAM: US ABDOMEN LIMITED CLINICAL HISTORY: POSTPRANDIAL ruq pain and diarrhea,GB POLYPS,R10.11 TECHNIQUE: Ultrasound abdomen performed using standard protocol. COMPARISON: CT CT ABDOMEN PELVIS W from 07/05/2023 FINDINGS: PANCREAS: Normal where visualized. LIVER: Normal. Hepatopetal flow in the Portal Vein. The liver measures in 14.7 cm length. No evidence of a hepatic mass. GALLBLADDER: No evidence of cholelithiasis. No evidence of wall thickening. No pericholecystic fluid identified. BILIARY SYSTEM: Common bile duct measures < 7 mm. No intrahepatic biliary ductal dilation. DONALDSON'S SIGN: Negative. RIGHT KIDNEY: Kidney is normal in size. No evidence of renal calculi. No evidence of hydronephrosis. No renal mass or cyst identified. ASCITES: None seen. IMPRESSION: Normal sonographic appearance of the upper abdomen. DATA REPOSITORY:
--- NOTE | 2024-10-13 06:45 | DI.NM_ITS ---
Exam(s) NM HEPATOBILIARY CCK GRP EXAM: NM HEPATOBILIARY CCK GRP CLINICAL HISTORY: chronic diarrhea/abdominal pain,ELEVATED LIPASE,R10.9. TECHNIQUE: Injected dose: 5 mCi Tc-99 mebrofenin Initial dynamic images: 60 minutes Post-Gallbladder fillin.2 mcg CCK IV according to protocol. Addition images: 20 minute dynamic during CCK administration. COMPARISON: US US ABDOMEN LIMITED from 10/13/2024 FINDINGS: Normal hepatic transit time. Prompt excretion into the small bowel. The gallbladder was visualized at approximately 50 minutes. The gallbladder ejection fraction was 7 percent. (Normal [facility] gallbladder ejection fraction is greater than 40 percent. IMPRESSION: 1. Abnormal gallbladder ejection fraction. This is consistent with impaired gallbladder emptying gal lbladder dysfunction.
[2024-10-13] MEDS: Sincalide 5 MCG VIAL 1.2 MCG IJ (12:20)
[2024-10-13] MEDS: Water,Injection,Sterile 10 ML VIAL IJ (12:21)
== END 2024-10-13 02:34 ==
LOC: DI 02:14
PROVIDERS: PCP Nurse Practitioner Family; Visit Provider Surgery
DX: K82.4 Cholesterolosis of gallbladder (principal); R74.8 Abnormal levels of other serum enzymes; R10.9 Unspecified abdominal pain
CPT/HCPCS: 78227; J2805; 76705

== ENCOUNTER 2024-10-20 00:46 | Outpatient (CLI) | payer BC, SELFPAY ==
[2024-10-20 17:01] LABS: HCT 42.6 % (36.0-46.0); MCH 28.7 pg (27.0-33.0); MCHC 32.9 % (32.0-36.0); MCV 88 fL (80-95); MPV 9.9 fL (8.0-11.0); Platelet Count 272 10^3/uL (130-400); RBC 4.87 10^6/uL (3.93-5.22); RDW 12.3 % (11.7-14.6); WBC 7.61 10^3/uL (4.4-10.8)
[2024-10-20 17:02] LABS: ESR 10 mm/hr (0-20)
[2024-10-20 17:09] LABS: Hemoglobin A1C 5.7 % (<5.7)
[2024-10-20 17:42] LABS: ALT 24 U/L (14-59); AST 15 U/L (15-37); Alkaline Phosphatase 88 U/L (46-116); Anion Gap 8.4 mmol/L (3-11); BUN 15 mg/dL (7-18); Bilirubin, Total 0.29 mg/dL (0.2-1.0); CO2 27.6 mmol/L (21.0-32.0); Calcium 8.6 mg/dL (8.5-10.1); Chloride 101 mmol/L (98-107); Estimated GFR 73.04 (mL/min/1.73m2); Ferritin 48 ng/mL (8-252); Glucose 142 mg/dL (74-106); HDL Cholesterol 75 mg/dL (40-60); LDL CHOLESTEROL 123 mg/dL (<100); Potassium 3.8 mmol/L (3.5-5.1); Sodium 137 mmol/L (136-145); Total Protein 7.8 g/dL (6.4-8.2)
[2024-10-20 17:53] LABS: Lipase 112 U/L (<78)
[2024-10-20 17:55] LABS: C-Reactive Protein < 0.50 mg/dL (<or=0.5)
[2024-10-20 18:28] LABS: Calculated LDL 124 mg/dL (<100); Cholesterol 215 mg/dL (<200); HDL Cholesterol 73 mg/dL (40-60); Triglyceride 93 mg/dL (<150); Vitamin D 25 Total 17.7 ng/mL (30-100)
[2024-10-20 18:35] LABS: Amylase 95 U/L (25-115)
[2024-10-21 21:14] LABS: Homocysteine 41.8 umol/L (5.0-13.9)
[2024-10-22 11:45] LABS: ANA Interpretation Negative (Negative)
[2024-10-24 11:39] LABS: Apolipoprotein A1, S 177 mg/dL (>=140); Apolipoprotein B, S 93 mg/dL (See Comment); Apolipoprotein B/A 1 ratio 0.5 (See Comment)
== END 2024-10-20 00:47 | disposition home or self-care (01) ==
LOC: LBO 00:46
PROVIDERS: Naturopath; PCP Nurse Practitioner Family; Visit Provider Nurse Practitioner Family
DX: R20.9 Unspecified disturbances of skin sensation (principal); K82.8 Other specified diseases of gallbladder; M79.606 Pain in leg, unspecified
CPT/HCPCS: 36415; 80053; 80061; 82172; 82306; 83090; 83690; 83721; 85027; 85652; 82150; 82728; 83036; 83718; 84443; 86038; 86140

== ENCOUNTER 2024-11-05 22:06 | Outpatient (REF) | payer BC, SELFPAY | END 2024-11-05 22:07 | disposition home or self-care (01) | LOC: LBN 22:06 | PROVIDERS: PCP Nurse Practitioner Family; Visit Provider Nurse Practitioner Family | DX: R30.0 Dysuria (principal); N39.0 Urinary tract infection, site not specified; N89.8 Other specified noninflammatory disorders of vagina | CPT/HCPCS: 87480; 87510; 87660 ==

== ENCOUNTER 2024-11-20 10:42 | Outpatient (REF) | payer BC, SELFPAY | END 2024-11-20 10:43 | disposition home or self-care (01) | LOC: LBN 10:42 | PROVIDERS: PCP Nurse Practitioner Family; Visit Provider Nurse Practitioner Family | DX: N89.8 Other specified noninflammatory disorders of vagina (principal); N76.0 Acute vaginitis; B96.89 Other specified bacterial agents as the cause of diseases classified elsewhere | CPT/HCPCS: 87480; 87510; 87660 ==

== ENCOUNTER 2024-12-23 09:58 | Outpatient (CLI) | payer BC, SELFPAY ==
--- NOTE | 2024-12-23 09:45 | RT.EKG_ITS ---
APPROVED REPORT Exam: Resting ECG Reason for Exam: upcoming surgery Patient Location: O HR:60 bpm ECG Measurements Heart Rate 60 AXIS NJ 180 P 37 QRSd 101 QRS -1 QT 424 T 34 QTc 424 Conclusion Sinus rhythm...normal P axis, V-rate 50- 99 Normal Electrocardiogram
== END 2024-12-23 09:59 | disposition home or self-care (01) ==
LOC: DI.KIM 10:00
PROVIDERS: PCP Nurse Practitioner Family; Visit Provider Nurse Practitioner Family
DX: R55 Syncope and collapse (principal)
CPT/HCPCS: 93010

== ENCOUNTER 2024-12-25 08:58 | Outpatient (RCR) | payer BC, SELFPAY ==
--- NOTE | 2024-12-29 15:36 | W.HOLTRPT ---
Date of service: 12/29/24 Time of Service: 15:36 Holter Monitor Report Referring Provider:: Jessica Schafer Indications:: Syncope Holter Monitor Note: This is a 48-hour Holter monitor. Rhythm throughout was sinus with an average heart rate of 65. Minimum was 41, maximum 128. There were 3 premature ventricular contractions. There were 11 premature atrial contractions. There was no atrial fibrillation, no high-grade AV block, no pauses greater than 3 seconds. No symptoms were reported
== END 2025-01-13 23:59 | disposition home or self-care (01) ==
LOC: CARDOPNVT 08:58
PROVIDERS: PCP Nurse Practitioner Family; Visit Provider Internal Medicine Cardiovascular Disease
DX: R55 Syncope and collapse (principal); I48.0 Paroxysmal atrial fibrillation
CPT/HCPCS: 93225; 93226

== ENCOUNTER 2025-03-31 01:50 | Outpatient (CLI) | payer BC, SELFPAY ==
--- NOTE | 2025-03-31 07:45 | DI.DEXA_ITS ---
Exam(s) XR DEXA BONE DENSITY W/WO COURTNEY EXAM: XR DEXA BONE DENSITY W/WO COURTNEY CLINICAL HISTORY: eval osteoporosis,BONE LOSS,LOW VITAMIN D,FAMILY H/O OSTEOPOROSIS TECHNIQUE: COMPARISON: No exams were available for comparison FINDINGS: Lateral Spine Image: Unremarkable. No compression deformities identified. Left hip: Total T-Score: 0.1 Total Z-Score: 0.3 T- and Z-scores: Within normal limits. Lumbar Spine: Total T-Score: -0.3 Total Z-Score: 0.0 T- and Z-scores: Within normal limits. IMPRESSION: No evidence of osteoporosis.
== END 2025-03-31 02:10 ==
LOC: DI 01:50
PROVIDERS: PCP Nurse Practitioner Family; Visit Provider Nurse Practitioner Family
DX: R79.89 Other specified abnormal findings of blood chemistry (principal); Z82.62 Family history of osteoporosis; M85.89 Other specified disorders of bone density and structure, multiple sites; Z87.81 Personal history of (healed) traumatic fracture
CPT/HCPCS: 77080